=== PATIENT | male | born 1990 | race African-American/Black ===

== ENCOUNTER 2017-04-24 12:49 | Emergency (ER) | payer BC ==
[~2017-04-24] VITALS: Ht 182.9 cm; Wt 143.7 kg
[2017-04-24 12:52] VITALS: BP 165/96
[2017-04-24] MEDS ORDERED: ZOFRAN ODT4 MG PO (14:26)
[2017-04-24] MEDS ORDERED: PEN-VEE K,VEET500 MG PO (14:38)
[2017-04-24] MEDS ORDERED: no home meds (14:42)
== END 2017-04-24 14:42 | disposition home or self-care (01) ==
LOC: EME 12:49
DX: J02.9 Acute pharyngitis, unspecified (principal)
CPT/HCPCS: 87651 90; 99281; 99284